=== PATIENT | male | born 1990 | race Caucasian/White ===

== ENCOUNTER 2019-05-11 13:46 | Emergency (ER) | payer SELFPAY ==
[~2019-05-11] VITALS: Ht 185.4 cm; Wt 84.4 kg
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
--- NOTE | 2019-05-11 14:57 | NUR ---
Kayla sanchez in [facility] - 05/11/19 at 1502 by SNEHAL XRAY DONE
--- NOTE | 2019-05-11 15:02 | NUR ---
PT WHEELED TO XRAY
--- NOTE | 2019-05-11 15:24 | NUR ---
EMT AT BEDSIDE
--- NOTE | 2019-05-11 15:28 | NUR ---
EMT AT BEDSIDE FOR KNEE [id number] AND CRUTCHES
--- NOTE | 2019-05-11 15:35 | NUR ---
Patient discharged to home in stable condition. Written and verbal after care instructions given. Patient verbalizes understanding of instruction, Rx, and crutches. Pt was able to demonstrate walking using his crutches. Ambulated with cruthces. VSS.
[2019-05-11 15:36] VITALS: BP 122/82
== END 2019-05-11 15:37 | disposition home or self-care (01) ==
LOC: ER 13:55
DX: M25.461 Effusion, right knee (principal); W10.2XXA Fall (on)(from) incline, initial encounter; Y93.23 Activity, snow (alpine) (downhill) skiing, snowboarding, sledding, tobogganing and snow tubing; Y92.89 Other specified places as the place of occurrence of the external cause; Y99.8 Other external cause status
CPT/HCPCS: 73564-TC